=== PATIENT | male | born 1965 | race Caucasian/White ===

== ENCOUNTER 2018-05-27 13:07 | Observation (INO) ==
[2018-05-27] MEDS ORDERED: ASPIRIN 325 MG TABLET PO STA (13:18)
[2018-05-27 13:29] LABS: Basophils % 0.6 % (0.0-0.8); Eosinophils # 0.2 10*3/uL (0.0-0.87); Eosinophils % 3.9 % (0.00-10.9); Hematocrit 33.1 VOL% (42.0-52.0); Immature Granulocytes % 0.6 %; Immature Granulocytes Absolute 0.03 #; Lymphocytes # 1.6 10*3/uL (1.4-4.0); Lymphocytes % 31.7 % (21.2-54.2); Mean Corpuscular HGB Conc 33.2 GM/DL (32-36); Mean Corpuscular Hemoglobin 32 PG (27-34); Mean Corpuscular Volume 95.4 FL (87-102); Mean Platelet Volume 9.8 FL (9.6-12.0); Monocytes # 0.6 10*3/uL (0.11-0.8); Monocytes % 11.6 % (1.7-12.7); Neutrophils # 2.7 10*3/uL (1.4-7.4); Neutrophils % 51.6 % (38.7-73.9); Platelet Count 208 T/CUMM (130-400); Red Blood Count 3.47 MC/CUMM (3.8-5.5); Red Cell Distribution Width 12.8 % (9.3-17.3); White Blood Count 5.2 T/CUMM (4-12)
[2018-05-27 13:38] LABS: PT Patient Result 10.3 SECS; Partial Thromboplastin Time 26.1 SECS (0-40)
[2018-05-27 13:58] LABS: Albumin 4.1 G/DL (3.4-5.0); Bilirubin,Total 0.5 MG/DL (0.2-1.0); Calcium 8.9 MG/DL (8.5-10.1); Osmolality,Calculated 282.3 MOS/KG (273-304); Potassium 4.2 MMOL/L (3.5-5.1)
[2018-05-27] MEDS ORDERED: ACETAMINOPHEN 325 MG TABLET PO PRN (14:45)
[2018-05-27] MEDS ORDERED: GLUCAGON 1 MG VIAL IM PRN (14:48)
[2018-05-27] MEDS ORDERED: DEXTROSE 50% 25 GM/50 ML VIAL IV PRN (14:48)
[2018-05-27] MEDS: INSULIN LISPRO 100 UNIT/ML SUBCUT SCH ×2 (16:43→20:16)
[2018-05-27] MEDS: GABAPENTIN 300 MG CAPSULE PO SCH (20:12)
[2018-05-27] MEDS: RANOLAZINE 500 MG TABLET PO SCH (20:13)
[2018-05-27] MEDS: CARVEDILOL 25 MG TABLET PO SCH (20:13)
[2018-05-27] MEDS ORDERED: traZODone 50 MG TABLET PO PRN (21:00)
[2018-05-28 07:19] LABS: Basophils % 0.6 % (0.0-0.8); Eosinophils # 0.2 10*3/uL (0.0-0.87); Eosinophils % 4.1 % (0.00-10.9); Immature Granulocytes % 0.6 %; Immature Granulocytes Absolute 0.03 #; Lymphocytes # 1.5 10*3/uL (1.4-4.0); Lymphocytes % 30.8 % (21.2-54.2); Mean Corpuscular HGB Conc 33.3 GM/DL (32-36); Mean Corpuscular Hemoglobin 31 PG (27-34); Mean Corpuscular Volume 92.3 FL (87-102); Mean Platelet Volume 9.9 FL (9.6-12.0); Monocytes # 0.5 10*3/uL (0.11-0.8); Monocytes % 9.6 % (1.7-12.7); Neutrophils # 2.7 10*3/uL (1.4-7.4); Neutrophils % 54.3 % (38.7-73.9); Platelet Count 212 T/CUMM (130-400); Red Cell Distribution Width 12.9 % (9.3-17.3); White Blood Count 4.9 T/CUMM (4-12)
[2018-05-28] MEDS: INSULIN LISPRO 100 UNIT/ML SUBCUT SCH ×3 (07:30→19:21)
[2018-05-28 07:55] LABS: Calcium 9.8 MG/DL (8.5-10.1); Osmolality,Calculated 274.8 MOS/KG (273-304); Potassium 4.2 MMOL/L (3.5-5.1); VLDL CHOLESTEROL 44.6 MG/DL
[2018-05-28] MEDS ORDERED: PRAVASTATIN 40 MG TABLET PO SCH (09:00)
[2018-05-28] MEDS ORDERED: amLODIPine 10 MG TABLET PO SCH (09:00)
[2018-05-28] MEDS ORDERED: DULoxetine 30 MG CAPSULE PO SCH (09:00)
[2018-05-28] MEDS ORDERED: CELECOXIB 100 MG CAPSULE PO SCH (09:00)
[2018-05-28] MEDS ORDERED: LOSARTAN 50 MG TABLET PO SCH (09:00)
[2018-05-28] MEDS ORDERED: ISOSORBIDE MONONITRATE 30 MG TABLET PO SCH (09:00)
[2018-05-28] MEDS: CARVEDILOL 25 MG TABLET PO SCH ×2 (09:32→19:21)
[2018-05-28] MEDS: GABAPENTIN 300 MG CAPSULE PO SCH ×2 (09:32→15:44)
[2018-05-28] MEDS: RANOLAZINE 500 MG TABLET PO SCH (09:32)
[2018-05-28] MEDS ORDERED: DIAZEPAM 5 MG TABLET PO ONE (10:40)
[2018-05-28] MEDS ORDERED: diphenhydrAMINE CAP 25 MG CAPSULE PO ONE (10:40)
[2018-05-28] MEDS ORDERED: SODIUM CHLORIDE 0.9% 1,000 ML IV SCH (11:00)
[2018-05-28] MEDS ORDERED: NITROGLYCERIN DRIP 50 MG/250 ML BOTTLE IV ONE (11:15)
[2018-05-28] MEDS ORDERED: VERAPAMIL 5 MG/2 ML VIAL ONE (11:15)
[2018-05-28] MEDS ORDERED: fentaNYL 100 MCG/2 ML VIAL ONE (11:21)
[2018-05-28] MEDS ORDERED: LIDOCAINE 1% 20 ML VIAL ONE (11:21)
[2018-05-28] MEDS ORDERED: MIDAZOLAM 2 MG/2 ML VIAL ONE (11:21)
[2018-05-28] MEDS ORDERED: ASPIRIN 325 MG TABLET ONE (11:25)
[2018-05-28] MEDS ORDERED: ENOXAPARIN 30 MG/0.3 ML SYRINGE ONE (11:42)
[2018-05-28 19:42] VITALS: BP 102/60
== END 2018-05-28 17:20 | disposition home or self-care (01) ==
LOC: N.ED 13:07 → N.EDINP 14:34 → INTOOBSV 14:34 → N.2W 15:21 → N.5E 17:05
PROVIDERS: ADMIT Family Medicine; ATTEND Family Medicine
PROC: CLCCHCL (ICD-10-PCS; 2018-05-28 11:45)